=== PATIENT | male | born 1970 | race Hispanic/Latino ===

== ENCOUNTER 2017-04-13 01:47 | Emergency (ER) | payer OTHER ==
[2017-04-13 02:02] VITALS: TEMP 98.5
[2017-04-13] MEDS ORDERED: Lidocaine 1% Inj (20ml) IJ STA (03:16)
[2017-04-13] MEDS ORDERED: Lidocaine 1% Inj (20ml) ONE (03:29)
--- NOTE | 2017-04-13 04:10 | ED PDOC ---
HPI: Wound Care - HPI Time Seen by Provider: 04/13/17 04:07 Chief Complaint (Nursing): Abnormal Skin Integrity Chief Complaint (Provider): sutures History Per: Patient Exam Limitations: no limitations Additional Complaint(s): 46yo with laceration left 3rd DIP via a knife while cutting food. denies weakness to finger, dec ROM and admits to active bleeding. Past Medical History Reviewed: Historical Data, Nursing Documentation, Vital Signs Vital Signs: Last Vital Signs Temp 98.5 F 04/13/17 01:59 Pulse 105 H 04/13/17 01:59 Resp 16 04/13/17 01:59 BP 107/73 04/13/17 01:59 Pulse Ox 96 04/13/17 01:59 - Family History Family History: States: No Known Family Hx - Home Medications Home Medications: Ambulatory Orders Medication Instructions Recorded Cephalexin [cephalexin] 500 mg PO BID #20 cap 04/13/17 - Allergies Allergies/Adverse Reactions: Allergies Allergy/AdvReac Type Severity Reaction Status Date / Time No Known Allergies Allergy Verified 04/13/17 01:58 Review of Systems ROS Statement: Except As Marked, All Systems Reviewed And Found Negative Musculoskeletal: Positive for: Hand Pain Physical Exam - Reviewed Nursing Documentation Reviewed: Yes Vital Signs Reviewed: Yes - Physical Exam Appears: Positive for: Well, Non-toxic, No Acute Distress Skin: Positive for: Normal Color, Warm, DRY Cardiovascular/Chest: Positive for: Regular Rate, Rhythm Respiratory: Positive for: CNT, Normal Breath Sounds Extremity: Positive for: Other (laceration: left hand 3rd digit DIP with lunar shape laceration. .5cm) Neurologic/Psych: Positive for: Alert, Oriented - ECG O2 Sat by Pulse Oximetry: 96 - Progress ED Course And Treament: laceration repair and tetanus Procedure: Wound Repair - Time Performed Time Performed: 04:11 - Time Out Time Out: Side verified, Site verified, Patient ID confirmed, Sterile procedures obs. - Consent Obtained Consent obtained: Verbal - Performed by Performed by: Mid-level Provider - Indications Indication(s):: Laceration - Location Finger:: Left, Middle Shape:: Curvilinear Dimensions Length cm: .5 Depth:: Epidermis - Anesthetic Technique Anesthetic Technique: Regional block Local/Regional Anesthetic:: Lidocaine 2% - Debris Debris:: None - Irrigated Irrigated with ml of normal saline: 100 - Complexity Complexity:: Simple (one layer) - Wound repair method Sutures:: # (5), Size (5-0), Type (nylon), Technique (simple interrupted) - Patient tolerated procedure Patient Tolerated Procedure:: Well Disposition - Clinical Impression Clinical Impression: Laceration - Patient ED Disposition Is Patient to be Admitted: No Counseled Patient/Family Regarding: Diagnosis, Need For Followup, Rx Given - Disposition Referrals: Octavio Matute MD [Staff Provider] - Disposition: Routine/Home Disposition Time: 04:13 Condition: STABLE Additional Instructions: follow these instructions: 1. keep wound dry 2. do not apply too much pressure to area 3. take your antibiotics 5. return in 5-6 days for removal Prescriptions: Cephalexin [cephalexin] 500 mg PO BID #20 cap Instructions: Care For Your Stitches (ED), Laceration (ED), Finger Laceration ( ED)
[2017-04-13 04:27] VITALS: BP 121/79; PULSE 86; RESP 17; O2SAT 99
== END 2017-04-13 04:25 | disposition home or self-care (01) ==
LOC: H.ER 01:47
DX: S61.213A Laceration without foreign body of left middle finger without damage to nail, initial encounter (principal); W26.0XXA Contact with knife, initial encounter; Y93.G1 Activity, food preparation and clean up; Z23 Encounter for immunization

== ENCOUNTER 2018-08-27 09:30 | Inpatient (IN) | payer OTHER ==
[2018-08-27 09:33] VITALS: BMI 22.9
[2018-08-27] MEDS ORDERED: Sodium Chloride 0.9% 1,000 ML IV STA (10:01)
--- NOTE | 2018-08-27 10:12 | ED PDOC ---
HPI: Abdomen Time Seen by Provider: 08/27/18 09:48 Chief Complaint (Nursing): Abdominal Pain Chief Complaint (Provider): Abdominal pain History Per: Patient History/Exam Limitations: no limitations Onset/Duration Of Symptoms: Hrs Outside of [place] travel?: No Current Symptoms Are (Timing): Still Present Location Of Pain/Discomfort: RLQ Quality Of Discomfort: "Pain" Associated Symptoms: denies: Fever, Chills, Nausea, Vomiting, Diarrhea, Urinary Symptoms Additional History Per: Patient Additional Complaint(s): 47yo male, otherwise well, comes to ER reporting abdominal pain since this morning. Patient states the pain is right lower abdomen, and denies any associated fever, chills, chest pain, shortness of breath, vomiting. He has not taken any medications for his pain. No additional complaints. PMD: None provided Past Medical History Reviewed: Historical Data, Nursing Documentation, Vital Signs Vital Signs: Last Vital Signs Temp 97.6 F 08/27/18 09:33 Pulse 76 08/27/18 09:33 Resp 17 08/27/18 09:33 BP 116/79 08/27/18 09:33 Pulse Ox 100 08/27/18 09:33 - Medical History PMH: No Chronic Diseases - Surgical History Surgical History: No Surg Hx - Family History Family History: States: No Known Family Hx - Home Medications Home Medications: Ambulatory Orders Medication Instructions Recorded No Known Home Med 08/27/18 - Allergies Allergies/Adverse Reactions: Allergies Allergy/AdvReac Type Severity Reaction Status Date / Time No Known Allergies Allergy Verified 04/13/17 01:58 Review of Systems ROS Statement: Except As Marked, All Systems Reviewed And Found Negative Constitutional: Negative for: Fever, Chills Cardiovascular: Negative for: Chest Pain Respiratory: Negative for: Shortness of Breath Gastrointestinal: Positive for: Abdominal Pain. Negative for: Nausea, Vomiting Genitourinary Male: Negative for: Dysuria, Frequency, Hematuria Physical Exam - Reviewed Nursing Documentation Reviewed: Yes Vital Signs Reviewed: Yes - Physical Exam Appears: Positive for: Non-toxic, Uncomfortable Head Exam: Positive for: ATRAUMATIC, NORMAL INSPECTION, NORMOCEPHALIC Skin: Positive for: Normal Color Eye Exam: Positive for: Normal appearance Neck: Positive for: Supple Cardiovascular/Chest: Positive for: Regular Rate, Rhythm Respiratory: Positive for: Normal Breath Sounds. Negative for: Respiratory Distress Gastrointestinal/Abdominal: Positive for: Soft, Tenderness (right lower quadrant). Negative for: Mass, Guarding, Rebound Back: Positive for: Normal Inspection Extremity: Positive for: Normal ROM Neurological/Psych: Positive for: Awake, Alert, Oriented (x 3) - Laboratory Results Result Diagrams: 08/28/18 06:00 08/27/18 10:09 - ECG O2 Sat by Pulse Oximetry: 100 (RA) Pulse Ox Interpretation: Normal Medical Decision Making Medical Decision Makinyo with right lower quadrant pain, r/o appendicitis Plan -- Labs -- CT Abdomen/Pelvis -- Urinalysis -- IV Fluids -- Morphien 2mg IV 1245 CT Abdomen/Pelvis FINDINGS: LOWER THORAX: Unremarkable. LIVER: Diffuse hepatic steatosis. No gross lesion or ductal dilatation. GALLBLADDER AND BILE DUCTS: Unremarkable. PANCREAS: Unremarkable. No gross lesion or ductal dilatation. SPLEEN: Unremarkable. ADRENALS: Unremarkable. No mass. KIDNEYS AND URETERS: Unremarkable. No hydronephrosis. No solid mass. VASCULATURE: Unremarkable. No aortic aneurysm. No aortic atherosclerotic calcification or mural plaque present. BOWEL: Irregular thickening of the distal antrum and pylorus. No obstruction. APPENDIX: Normal appendix. PERITONEUM: Large heterogeneously enhancing right upper quadrant mass measuring 4.4 x 9.4 x 10.6 cm. The mass may be contiguous with the inferior portion of the gastric antrum as there is no clear fat plane between seen specifically on series 3, images 65-68. The inferior aspect of the mass is less distinct and is surrounded by hemorrhagic fluid which extends into the right pericolic gutter and into the pelvis. There was clear separation of the mass from adjacent colon, small bowel and anterior abdominal wall musculature. No free air. LYMPH NODES: Unremarkable. No enlarged lymph nodes. BLADDER: Unremarkable. REPRODUCTIVE: Unremarkable. BONES: No acute fracture. OTHER FINDINGS: None. IMPRESSION: Large heterogeneously enhancing right upper quadrant mass measuring 4.4 x 9.4 x 10.6 cm. The mass may be contiguous with the inferior portion of the gastric antrum as there is no clear interposed fat plane seen specifically on series 3, images 65-68. The inferior aspect of the mass is less distinct and is surrounded by hemorrhagic fluid which extends into the right pericolic gutter and into the pelvis. There is clear separation of the mass from adjacent colon, small bowel and anterior abdominal wall musculature. Alternatively, the mass may originate in the omentum. There is also irregular thickening of the distal antrum and pylorus. Findings conveyed to Dr. Gonzalez by Dr. Ruvalcaba at 12:45 p.m. on 08/27/2018. 1333 CT and labs discussed with surgical garment assembly supervisor working under Dr. Armando, who is agreeable with plan for admission residential roofer helper will evaluate patient at bedside. Dr. Mendez aware of patient. [address] Cowart, who accepts patient for admission Informed patient of plan for admission and is agreeable Scribe Attestation: Documented by Sonya Mosher acting as a scribe for Kimberly Gonzalez MD. Provider Attestation: All medical record entries made by the Scribe were at my direction and personally dictated by me. I have reviewed the chart and agree that the record accurately reflects my personal performance of the history, physical exam, medical decision making, and the department course for this patient. I have also personally directed, reviewed, and agree with the discharge instructions and disposition. Disposition - Clinical Impression Clinical Impression: Abdominal pain - Patient ED Disposition Is Patient to be Admitted: Yes - Disposition Disposition Time: 13:36 Condition: STABLE - Pt Status Changed To: Hospital Disposition Of: Inpatient - Admit Certification Admit to Inpatient:: After my assessment, the patient will require hospitalization for at least two midnights. This is because of the severity of symptoms shown, intensity of services needed, and/or the medical risk in this patient being treated as an outpatient. - POA Present On Arrival: None
[2018-08-27 10:14] LABS: BASO % 0.6 % (0.0-2.0); EOS % 0.8 % (0.0-4.0); HEMOGLOBIN 13.5 g/dL (12.0-18.0); LYMPH # 2.4 K/uL (1.0-4.3); LYMPH % 54.8 % (20.0-40.0); MEAN CELL VOLUME 100.3 fl (80.0-94.0); MEAN CORPUSCULAR HGB CONC 32.9 g/dL (33.0-37.0); MEAN PLATELET VOLUME 9.2 fl (7.2-11.7); MONO # 0.6 K/uL (0.0-0.8); NEUT # 1.2 K/uL (1.8-7.0); NEUT % 28.8 % (50.0-75.0); NRBC % 0.1 % (0.0-0.0); RBC 4.1 Mil/uL (4.40-5.90); WHITE BLOOD COUNT 4.3 K/uL (4.8-10.8)
[2018-08-27 10:24] LABS: ALB/GLOB RATIO 1.5 (1.0-2.1); ALBUMIN 4.6 g/dL (3.5-5.0); ALT/SGPT 363 U/L (21-72); AST/SGOT 261 U/L (17-59); BLOOD UREA NITROGEN 11 mg/dl (9-20); CALCIUM 8.8 mg/dL (8.4-10.2); GFR NON-AFRICAN AMERICAN > 60
[2018-08-27 10:26] LABS: INR 0.9; PROTHROMBIN TIME 10.6 Seconds (9.8-13.1)
[2018-08-27 10:27] LABS: PARTIAL THROMBOPLASTIN TIME 23.8 Seconds (25.6-37.1)
[2018-08-27] MEDS ORDERED: Sodium Chloride 0.9% 100 ML IV ONE (12:03)
[2018-08-27] MEDS ORDERED: Iohexol 300 100 ML IJ ONE (12:03)
[2018-08-27 12:12] LABS: SQUAMOUS EPITHIAL < 1 /hpf (0-5); URINE BILIRUBIN NEGATIVE (NEGATIVE); URINE BLOOD SMALL (NEGATIVE); URINE CLARITY CLEAR (Clear); URINE COLOR STRAW (YELLOW); URINE GLUCOSE (UA) NEG (NEGATIVE); URINE LEUKOCYTE ESTERASE NEG Leu/uL (Negative); URINE PROTEIN NEGATIVE (NEGATIVE); URINE UROBILINOGEN 0.2-1.0 mg/dL (0.2-1.0)
--- NOTE | 2018-08-27 12:56 | CT ---
Date of service: 08/27/2018 PROCEDURE: CT Abdomen and Pelvis with contrast HISTORY: RLQ pain COMPARISON: None. TECHNIQUE: Contrast dose: 95 mL Omnipaque 300 Radiation dose: Total exam DLP = 433.84 mGy-cm. This CT exam was performed using one or more of the following dose reduction techniques: Automated exposure control, adjustment of the mA and/or kV according to patient size, and/or use of iterative reconstruction technique. FINDINGS: LOWER THORAX: Unremarkable. LIVER: Diffuse hepatic steatosis. No gross lesion or ductal dilatation. GALLBLADDER AND BILE DUCTS: Unremarkable. PANCREAS: Unremarkable. No gross lesion or ductal dilatation. SPLEEN: Unremarkable. ADRENALS: Unremarkable. No mass. KIDNEYS AND URETERS: Unremarkable. No hydronephrosis. No solid mass. VASCULATURE: Unremarkable. No aortic aneurysm. No aortic atherosclerotic calcification or mural plaque present. BOWEL: Irregular thickening of the distal antrum and pylorus. No obstruction. APPENDIX: Normal appendix. PERITONEUM: Large heterogeneously enhancing right upper quadrant mass measuring 4.4 x 9.4 x 10.6 cm. The mass may be contiguous with the inferior portion of the gastric antrum as there is no clear fat plane between seen specifically on series 3, images 65-68. The inferior aspect of the mass is less distinct and is surrounded by hemorrhagic fluid which extends into the right pericolic gutter and into the pelvis. There was clear separation of the mass from adjacent colon, small bowel and anterior abdominal wall musculature. No free air. LYMPH NODES: Unremarkable. No enlarged lymph nodes. BLADDER: Unremarkable. REPRODUCTIVE: Unremarkable. BONES: No acute fracture. OTHER FINDINGS: None. IMPRESSION: Large heterogeneously enhancing right upper quadrant mass measuring 4.4 x 9.4 x 10.6 cm. The mass may be contiguous with the inferior portion of the gastric antrum as there is no clear interposed fat plane seen specifically on series 3, images 65-68. The inferior aspect of the mass is less distinct and is surrounded by hemorrhagic fluid which extends into the right pericolic gutter and into the pelvis. There is clear separation of the mass from adjacent colon, small bowel and anterior abdominal wall musculature. Alternatively, the mass may originate in the omentum. There is also irregular thickening of the distal antrum and pylorus. Findings conveyed to Dr. Gonzalez by Dr. Ruvalcaba at 12:45 p.m. on 08/27/2018.
--- NOTE | 2018-08-27 18:02 | CP.PCM.CON ---
History of Present Illness - History of Present Illness History of Present Illness: Surgery Consult Note- Dr. Armando Reason for consult: abdominal mass 47M presents to [facility] ED with Right flank to back pain that started 1 day ago. Pain was severely debilitating. Never has pain like this in the past. While in the ER patient received analgesia and pain currently resolved. During work up, CT scan revealed intra-abdominal mass measuring approx 10x7cm. Surgery was subsequently consulted. No obstructive symptoms noted During encounter patient Denies: nausea, vomiting, fevers, chills, changes in bowel, bladder habits, BRBPR, unexplained weight gain, or weight loss, recent foreign travel. PMH: Depression (no longer taking medications) PSH: denies ALL: NKDA SocialHx: etoh use- 2 drinks daily, denies tobacco, recreational drug use FH: mother of Breast Ca, Father "liver Ca" hx of HepC Review of Systems - Review of Systems All systems: reviewed and no additional remarkable complaints except - Constitutional Constitutional: As Per HPI Past Patient History - Past Social History Smoking Status: Never Smoked - CARDIAC Hx Cardiac Disorders: No - PSYCHIATRIC Hx Substance Use: No - SURGICAL HISTORY Hx Surgeries: No Meds Allergies/Adverse Reactions: Allergies Allergy/AdvReac Type Severity Reaction Status Date / Time No Known Allergies Allergy Verified 04/13/17 01:58 Physical Exam - Constitutional Appears: Non-toxic, No Acute Distress - Head Exam Head Exam: ATRAUMATIC - Eye Exam Eye Exam: EOMI. absent: Scleral icterus - ENT Exam ENT Exam: Mucous Membranes Moist - Respiratory Exam Respiratory Exam: NORMAL BREATHING PATTERN. absent: Accessory Muscle Use, Respiratory Distress - Cardiovascular Exam Cardiovascular Exam: REGULAR RHYTHM. absent: Bradycardia, Tachycardia - GI/Abdominal Exam GI & Abdominal Exam: Normal Bowel Sounds, Soft. absent: Distended, Firm, Gu arding, Hernia, Pulsatile Mass, Rebound, Rigid, Tenderness Additional comments: fullness palpated RUQ. Denies pain to palpation - Extremities Exam Extremities exam: Positive for: normal capillary refill. Negative for: calf tenderness, tenderness - Back Exam Back exam: absent: CVA tenderness (L), CVA tenderness (R) - Neurological Exam Neurological exam: Alert, Oriented x3 - Psychiatric Exam Psychiatric exam: Normal Affect - Skin Skin Exam: Intact, Warm Results - Vital Signs Recent Vital Signs: Last Vital Signs Temp 98.2 F 08/27/18 17:11 Pulse 103 H 08/27/18 17:11 Resp 18 08/27/18 17:11 BP 123/76 08/27/18 17:11 Pulse Ox 98 08/27/18 17:11 - Labs Result Diagrams: 08/27/18 10:07 08/27/18 10:09 Labs: Laboratory Results - last 24 hr 08/27/18 08/27/18 08/27/18 10:07 10:07 10:09 WBC 4.3 L RBC 4.10 L Hgb 13.5 Hct 41.1 MCV 100.3 H MCH 33.0 H MCHC 32.9 L RDW 14.0 Plt Count 161 MPV 9.2 Neut % (Auto) 28.8 L Lymph % (Auto) 54.8 H [place] % (Auto) 15.0 H Eos % (Auto) 0.8 Baso % (Auto) 0.6 Neut # (Auto) 1.2 L Lymph # (Auto) 2.4 [place] # (Auto) 0.6 Eos # (Auto) 0.0 Baso # (Auto) 0.0 PT 10.6 INR 0.9 APTT 23.8 L Sodium 144 Potassium 4.1 Chloride 108 H Carbon Dioxide 22 Anion Gap 18 BUN 11 Creatinine 0.8 Est GFR ( Amer) > 60 Est GFR (Non-Af Amer) > 60 Random Glucose 107 Calcium 8.8 Total Bilirubin 0.4 AST 261 H ALT 363 H Alkaline Phosphatase 64 Total Protein 7.7 Albumin 4.6 Globulin 3.1 Albumin/Globulin Ratio 1.5 Urine Color Urine Clarity Urine pH Ur Specific [place] Urine Protein Urine Glucose (UA) Urine Ketones Urine Blood Urine Nitrate Urine Bilirubin Urine Urobilinogen Ur Leukocyte Esterase Urine RBC (Auto) Urine Microscopic WBC Ur Squamous Epith Cells 08/27/18 11:53 WBC RBC Hgb Hct MCV MCH MCHC RDW Plt Count MPV Neut % (Auto) Lymph % (Auto) [place] % (Auto) Eos % (Auto) Baso % (Auto) Neut # (Auto) Lymph # (Auto) [place] # (Auto) Eos # (Auto) Baso # (Auto) PT INR APTT Sodium Potassium Chloride Carbon Dioxide Anion Gap BUN Creatinine Est GFR ( Amer) Est GFR (Non-Af Amer) Random Glucose Calcium Total Bilirubin AST ALT Alkaline Phosphatase Total Protein Albumin Globulin Albumin/Globulin Ratio Urine Color Straw Urine Clarity Clear Urine pH 6.0 Ur Specific [place] 1.013 Urine Protein Negative Urine Glucose (UA) Neg Urine Ketones Trace Urine Blood Small Urine Nitrate Negative Urine Bilirubin Negative Urine Urobilinogen 0.2-1.0 Ur Leukocyte Esterase Neg Urine RBC (Auto) 1 Urine Microscopic WBC < 1 Ur Squamous Epith Cells < 1 Assessment & Plan - Assessment and Plan (Free Text) Assessment: 47M w/ Intra-abdominal Mass Plan: - repeat CBC in AM - Tumor Markers - Diet as tolerated - Recommend GI Consult - Recommend Biopsy possible IR - patient shows no obstructive symptoms. If Patient desires to go home, cleared for follow up as an outpatient with close further work up required - discussed w/ Dr. Armando Surgical attending and Dr. Cowart [facility] PGY2
--- NOTE | 2018-08-27 23:57 | CP.PCM.CON ---
History of Present Illness - History of Present Illness History of Present Illness: 47 yo male admitted with right sided abdominal pain. Started suddenly this morning. Was well previously. Episode in the past of elevated LFTs which he was told would respond to diet. No nausea, vomiting or diarrhea. No fever/chills. Wagner s 2 drinks daily Review of Systems - Constitutional Constitutional: absent: Chills - EENT Eyes: absent: Blurred Vision Ears: absent: Ear Discharge Nose/Mouth/Throat: absent: Epistaxis - Cardiovascular Cardiovascular: absent: Chest Pain - Respiratory Respiratory: absent: Cough - Gastrointestinal Gastrointestinal: As Per HPI - Genitourinary Genitourinary: absent: Change in Urinary Stream - Musculoskeletal Musculoskeletal: absent: Arthralgias Past Patient History - Past Social History Smoking Status: Never Smoked - CARDIAC Hx Cardiac Disorders: No - PULMONARY Hx Respiratory Disorders: No - NEUROLOGICAL Hx Neurological Disorder: No - HEENT Hx HEENT Problems: No - RENAL Hx Chronic Kidney Disease: No - HEMATOLOGICAL/ONCOLOGICAL Hx Blood Disorders: No - INTEGUMENTARY Hx Dermatological Problems: No - MUSCULOSKELETAL/RHEUMATOLOGICAL Hx Musculoskeletal Disorders: No Hx Falls: No - GASTROINTESTINAL Hx Gastrointestinal Disorders: No - GENITOURINARY/GYNECOLOGICAL Hx Genitourinary Disorders: No - PSYCHIATRIC Hx Substance Use: No - SURGICAL HISTORY Hx Surgeries: No - ANESTHESIA Has any member of the family had a problem w/ anesthesia?: No Meds Allergies/Adverse Reactions: Allergies Allergy/AdvReac Type Severity Reaction Status Date / Time No Known Allergies Allergy Verified 04/13/17 01:58 Physical Exam - Constitutional Appears: No Acute Distress - Head Exam Head Exam: ATRAUMATIC - Eye Exam Eye Exam: Normal appearance - ENT Exam ENT Exam: Normal Exam - Respiratory Exam Respiratory Exam: Clear to Auscultation Bilateral - Cardiovascular Exam Cardiovascular Exam: REGULAR RHYTHM, +S1, +S2 - GI/Abdominal Exam GI & Abdominal Exam: Normal Bowel Sounds, Soft. absent: Tenderness - Extremities Exam Extremities exam: Positive for: normal inspection Results - Vital Signs Recent Vital Signs: Last Vital Signs Temp 98.2 F 08/27/18 17:11 Pulse 80 08/27/18 18:21 Resp 18 08/27/18 18:21 BP 123/76 08/27/18 17:11 Pulse Ox 98 08/27/18 17:11 - Labs Result Diagrams: 08/27/18 10:07 08/27/18 10:09 Labs: Laboratory Results - last 24 hr 08/27/18 08/27/18 08/27/18 10:07 10:07 10:09 WBC 4.3 L RBC 4.10 L Hgb 13.5 Hct 41.1 MCV 100.3 H MCH 33.0 H MCHC 32.9 L RDW 14.0 Plt Count 161 MPV 9.2 Neut % (Auto) 28.8 L Lymph % (Auto) 54.8 H [place] % (Auto) 15.0 H Eos % (Auto) 0.8 Baso % (Auto) 0.6 Neut # (Auto) 1.2 L Lymph # (Auto) 2.4 [place] # (Auto) 0.6 Eos # (Auto) 0.0 Baso # (Auto) 0.0 PT 10.6 INR 0.9 APTT 23.8 L Sodium 144 Potassium 4.1 Chloride 108 H Carbon Dioxide 22 Anion Gap 18 BUN 11 Creatinine 0.8 Est GFR ( Amer) > 60 Est GFR (Non-Af Amer) > 60 Random Glucose 107 Calcium 8.8 Total Bilirubin 0.4 AST 261 H ALT 363 H Alkaline Phosphatase 64 Total Protein 7.7 Albumin 4.6 Globulin 3.1 Albumin/Globulin Ratio 1.5 Urine Color Urine Clarity Urine pH Ur Specific [place] Urine Protein Urine Glucose (UA) Urine Ketones Urine Blood Urine Nitrate Urine Bilirubin Urine Urobilinogen Ur Leukocyte Esterase Urine RBC (Auto) Urine Microscopic WBC Ur Squamous Epith Cells 08/27/18 11:53 WBC RBC Hgb Hct MCV MCH MCHC RDW Plt Count MPV Neut % (Auto) Lymph % (Auto) [place] % (Auto) Eos % (Auto) Baso % (Auto) Neut # (Auto) Lymph # (Auto) [place] # (Auto) Eos # (Auto) Baso # (Auto) PT INR APTT Sodium Potassium Chloride Carbon Dioxide Anion Gap BUN Creatinine Est GFR ( Amer) Est GFR (Non-Af Amer) Random Glucose Calcium Total Bilirubin AST ALT Alkaline Phosphatase Total Protein Albumin Globulin Albumin/Globulin Ratio Urine Color Straw Urine Clarity Clear Urine pH 6.0 Ur Specific [place] 1.013 Urine Protein Negative Urine Glucose (UA) Neg Urine Ketones Trace Urine Blood Small Urine Nitrate Negative Urine Bilirubin Negative Urine Urobilinogen 0.2-1.0 Ur Leukocyte Esterase Neg Urine RBC (Auto) 1 Urine Microscopic WBC < 1 Ur Squamous Epith Cells < 1 - Imaging and Cardiology CT scan - abdomen Status: Image reviewed by me, Report reviewed by me Assessment & Plan (1) Abdominal pain Assessment and Plan: Larrge 10 cm mass RUQ possibly contiguous to inferior portion of gastric antrum. Will perform upper endoscopy Wednesday. If negative biopsy by IR. Status: Acute
[2018-08-28 07:03] LABS: BASO % 0.4 % (0.0-2.0); EOS % 0.5 % (0.0-4.0); HEMOGLOBIN 11.3 g/dL (12.0-18.0); LYMPH # 1.2 K/uL (1.0-4.3); LYMPH % 21.5 % (20.0-40.0); MEAN CELL VOLUME 98.4 fl (80.0-94.0); MEAN CORPUSCULAR HEMOGLOBIN 33.6 pg (27.0-31.0); MEAN CORPUSCULAR HGB CONC 34.1 g/dL (33.0-37.0); MEAN PLATELET VOLUME 9.5 fl (7.2-11.7); MONO % 18.4 % (0.0-10.0); NEUT # 3.4 K/uL (1.8-7.0); NEUT % 59.2 % (50.0-75.0); RBC 3.36 Mil/uL (4.40-5.90); RED CELL DISTRIBUTION WIDTH 13.4 % (11.5-14.5); WHITE BLOOD COUNT 5.7 K/uL (4.8-10.8)
[2018-08-28 07:54] VITALS: RESP 20
--- NOTE | 2018-08-28 08:28 | CP.PCM.PN ---
Subjective - Date & Time of Evaluation Date of Evaluation: 08/28/18 Time of Evaluation: 08:28 - Subjective Subjective: Surgery Progress Note- Dr. Armando No acute events overnight. Tolerating Regular diet. + OOB and ambulating. Denies fevers, chills, chest pain, shortness of breath, acute mental status changes, dizziness. Objective - Vital Signs/Intake and Output Vital Signs (last 24 hours): Temp Pulse Resp BP Pulse Ox 98.1 F 91 H 20 137/88 98 08/28/18 07:53 08/28/18 07:53 08/28/18 07:53 08/28/18 07:53 08/28/18 07:53 - Medications Medications: Current Medications Lactated Ringer's (Lactated Ringer's) 1,000 mls @ 60 mls/hr IV .[id number] ERIC - Labs Labs: 08/28/18 06:00 08/27/18 10:09 PT 10.6 Seconds (9.8-13.1) 08/27/18 10:07 INR 0.9 08/27/18 10:07 APTT 23.8 Seconds (25.6-37.1) L 08/27/18 10:07 - Constitutional Appears: Non-toxic, No Acute Distress - Head Exam Head Exam: ATRAUMATIC - Eye Exam Eye Exam: EOMI. absent: Scleral icterus - ENT Exam ENT Exam: Mucous Membranes Moist - Respiratory Exam Respiratory Exam: NORMAL BREATHING PATTERN. absent: Accessory Muscle Use, R espiratory Distress - Cardiovascular Exam Cardiovascular Exam: REGULAR RHYTHM. absent: Bradycardia, Tachycardia - GI/Abdominal Exam GI & Abdominal Exam: Soft. absent: Distended, Firm, Guarding, Rigid, Tenderness Additional comments: fullness in RUQ., no pain - Neurological Exam Neurological Exam: Alert, Awake, Oriented x3 - Skin Skin Exam: Intact, Warm Assessment and Plan - Assessment and Plan (Free Text) Assessment: 47M w/ intra-abdominal mass, gastric vs mesenteric Plan: - f/u Hgb - c/s GI; all recs appreciated - tumor markers - recommend biopsy - d[facility]
[2018-08-28 16:22] VITALS: BP 124/83; PULSE 90; TEMP 98.3; O2SAT 99
[2018-08-28 18:29] LABS: BASO % 0.6 % (0.0-2.0); EOS % 0.8 % (0.0-4.0); HEMOGLOBIN 11.4 g/dL (12.0-18.0); LYMPH # 1.5 K/uL (1.0-4.3); LYMPH % 30.6 % (20.0-40.0); MEAN CELL VOLUME 98.6 fl (80.0-94.0); MEAN CORPUSCULAR HEMOGLOBIN 32.8 pg (27.0-31.0); MEAN CORPUSCULAR HGB CONC 33.2 g/dL (33.0-37.0); MEAN PLATELET VOLUME 9.2 fl (7.2-11.7); MONO % 20.2 % (0.0-10.0); NEUT # 2.4 K/uL (1.8-7.0); NEUT % 47.8 % (50.0-75.0); NRBC % 0.1 % (0.0-0.0); PLATELET COUNT 144 K/uL (130-400); RBC 3.47 Mil/uL (4.40-5.90); RED CELL DISTRIBUTION WIDTH 13.6 % (11.5-14.5)
[2018-08-28 19:17] LABS: HYPOCHROMIC SLIGHT; PLATELET ESTIMATE NORMAL (NORMAL)
[2018-08-28 19:18] LABS: BANDS 3 % (0-2); BASOPHIL 1 % (0-2); EOSINOPHIL 1 % (0-7); LYMPHOCYTE 30 % (20-50); MONOCYTE 21 % (0-10); NEUTROPHIL 44 % (42-75); TOTAL CELLS COUNTED 100
[2018-08-28] MEDS ORDERED: Lactated Ringer's 1,000 ML IV SCH (22:00)
--- NOTE | 2018-08-29 05:30 | CP.PCM.HP ---
Past Patient History - Past Social History Smoking Status: Never Smoked - CARDIAC Hx Cardiac Disorders: No - PULMONARY Hx Respiratory Disorders: No - NEUROLOGICAL Hx Neurological Disorder: No - HEENT Hx HEENT Problems: No - RENAL Hx Chronic Kidney Disease: No - HEMATOLOGICAL/ONCOLOGICAL Hx Blood Disorders: No - INTEGUMENTARY Hx Dermatological Problems: No - MUSCULOSKELETAL/RHEUMATOLOGICAL Hx Musculoskeletal Disorders: No Hx Falls: No - GASTROINTESTINAL Hx Gastrointestinal Disorders: No - GENITOURINARY/GYNECOLOGICAL Hx Genitourinary Disorders: No - PSYCHIATRIC Hx Substance Use: No - SURGICAL HISTORY Hx Surgeries: No - ANESTHESIA Has any member of the family had a problem w/ anesthesia?: No Meds Allergies/Adverse Reactions: Allergies Allergy/AdvReac Type Severity Reaction Status Date / Time No Known Allergies Allergy Verified 04/13/17 01:58 Results - Vital Signs Recent Vital Signs: Last Vital Signs Temp 98.3 F 08/28/18 16:22 Pulse 90 08/28/18 16:22 Resp 20 08/28/18 16:22 BP 124/83 08/28/18 16:22 Pulse Ox 99 08/28/18 16:22 - Labs Result Diagrams: 08/28/18 18:15 08/27/18 10:09 Labs: Laboratory Results - last 24 hr 08/28/18 08/28/18 08/28/18 06:00 06:00 06:00 WBC 5.7 RBC 3.36 L Hgb 11.3 L D Hct 33.1 L MCV 98.4 H MCH 33.6 H MCHC 34.1 RDW 13.4 Plt Count 143 MPV 9.5 Neut % (Auto) 59.2 Lymph % (Auto) 21.5 [place] % (Auto) 18.4 H Eos % (Auto) 0.5 Baso % (Auto) 0.4 Neut # (Auto) 3.4 Lymph # (Auto) 1.2 [place] # (Auto) 1.0 H Eos # (Auto) 0.0 Baso # (Auto) 0.0 Neutrophils % (Manual) Band Neutrophils % Lymphocytes % (Manual) Monocytes % (Manual) Eosinophils % (Manual) Basophils % (Manual) Platelet Estimate Hypochromasia (manual) Alpha Fetoprotein 4.7 Carcinoembryonic Ag 1.0 08/28/18 18:15 WBC 5.0 RBC 3.47 L Hgb 11.4 L Hct 34.2 L MCV 98.6 H MCH 32.8 H MCHC 33.2 RDW 13.6 Plt Count 144 MPV 9.2 Neut % (Auto) 47.8 L Lymph % (Auto) 30.6 [place] % (Auto) 20.2 H Eos % (Auto) 0.8 Baso % (Auto) 0.6 Neut # (Auto) 2.4 Lymph # (Auto) 1.5 [place] # (Auto) 1.0 H Eos # (Auto) 0.0 Baso # (Auto) 0.0 Neutrophils % (Manual) 44 Band Neutrophils % 3 H Lymphocytes % (Manual) 30 Monocytes % (Manual) 21 H Eosinophils % (Manual) 1 Basophils % (Manual) 1 Platelet Estimate Normal Hypochromasia (manual) Slight Alpha Fetoprotein Carcinoembryonic Ag
--- NOTE | 2018-08-29 05:31 | CP.PCM.DIS ---
Provider - Provider Date of Admission: 08/27/18 13:33 Attending physician: Irena Cowart MD Consults: 08/27/18 13:36 Gastroenterology Consult Stat Comment: Consulting Provider: Michael Mendez Consulting Physician: Michael Mendez Reason for Consult: Abdominal mass General Surgery Consult Stat Comment: Consulting Provider: Annemarie Armando Consulting Physician: Annemarie Armando Reason for Consult: Abdominal mass Time Spent in preparation of Discharge (in minutes): 25 Hospital Course - Lab Results Lab Results: Most Recent Lab Values WBC 5.0 K/uL (4.8-10.8) 08/28/18 18:15 RBC 3.47 Mil/uL (4.40-5.90) L 08/28/18 18:15 Hgb 11.4 g/dL (12.0-18.0) L 08/28/18 18:15 Hct 34.2 % (35.0-51.0) L 08/28/18 18:15 MCV 98.6 fl (80.0-94.0) H 08/28/18 18:15 MCH 32.8 pg (27.0-31.0) H 08/28/18 18:15 MCHC 33.2 g/dL (33.0-37.0) 08/28/18 18:15 RDW 13.6 % (11.5-14.5) 08/28/18 18:15 Plt Count 144 K/uL (130-400) 08/28/18 18:15 MPV 9.2 fl (7.2-11.7) 08/28/18 18:15 Neut % (Auto) 47.8 % (50.0-75.0) L 08/28/18 18:15 Lymph % (Auto) 30.6 % (20.0-40.0) 08/28/18 18:15 [place] % (Auto) 20.2 % (0.0-10.0) H 08/28/18 18:15 Eos % (Auto) 0.8 % (0.0-4.0) 08/28/18 18:15 Baso % (Auto) 0.6 % (0.0-2.0) 08/28/18 18:15 Neut # (Auto) 2.4 K/uL (1.8-7.0) 08/28/18 18:15 Lymph # (Auto) 1.5 K/uL (1.0-4.3) 08/28/18 18:15 [place] # (Auto) 1.0 K/uL (0.0-0.8) H 08/28/18 18:15 Eos # (Auto) 0.0 K/uL (0.0-0.7) 08/28/18 18:15 Baso # (Auto) 0.0 K/uL (0.0-0.2) 08/28/18 18:15 Neutrophils % (Manual) 44 % (42-75) 08/28/18 18:15 Band Neutrophils % 3 % (0-2) H 08/28/18 18:15 Lymphocytes % (Manual) 30 % (20-50) 08/28/18 18:15 Monocytes % (Manual) 21 % (0-10) H 08/28/18 18:15 Eosinophils % (Manual) 1 % (0-7) 08/28/18 18:15 Basophils % (Manual) 1 % (0-2) 08/28/18 18:15 Platelet Estimate Normal (NORMAL) 08/28/18 18:15 Hypochromasia (manual) Slight 08/28/18 18:15 PT 10.6 Seconds (9.8-13.1) 08/27/18 10:07 INR 0.9 08/27/18 10:07 APTT 23.8 Seconds (25.6-37.1) L 08/27/18 10:07 Sodium 144 mmol/l (132-148) 08/27/18 10:09 Potassium 4.1 MMOL/L (3.6-5.0) 08/27/18 10:09 Chloride 108 mmol/L (98-107) H 08/27/18 10:09 Carbon Dioxide 22 mmol/L (22-30) 08/27/18 10:09 Anion Gap 18 (10-20) 08/27/18 10:09 BUN 11 mg/dl (9-20) 08/27/18 10:09 Creatinine 0.8 mg/dl (0.8-1.5) 08/27/18 10:09 Est GFR ( Amer) > 60 08/27/18 10:09 Est GFR (Non-Af Amer) > 60 08/27/18 10:09 Random Glucose 107 mg/dL (75-110) 08/27/18 10:09 Calcium 8.8 mg/dL (8.4-10.2) 08/27/18 10:09 Total Bilirubin 0.4 mg/dl (0.2-1.3) 08/27/18 10:09 AST 261 U/L (17-59) H 08/27/18 10:09 ALT 363 U/L (21-72) H 08/27/18 10:09 Alkaline Phosphatase 64 U/L (38-126) 08/27/18 10:09 Total Protein 7.7 G/DL (6.3-8.2) 08/27/18 10:09 Albumin 4.6 g/dL (3.5-5.0) 08/27/18 10:09 Globulin 3.1 gm/dL (2.2-3.9) 08/27/18 10:09 Albumin/Globulin Ratio 1.5 (1.0-2.1) 08/27/18 10:09 Alpha Fetoprotein 4.7 IU/mL (0.0-7.22) 08/28/18 06:00 Carcinoembryonic Ag 1.0 ng/mL (0-3.0) 08/28/18 06:00 Urine Color Straw (YELLOW) 08/27/18 11:53 Urine Clarity Clear (Clear) 08/27/18 11:53 Urine pH 6.0 (5.0-8.0) 08/27/18 11:53 Ur Specific [place] 1.013 (1.003-1.030) 08/27/18 11:53 Urine Protein Negative mg/dL (NEGATIVE) 08/27/18 11:53 Urine Glucose (UA) Neg mg/dL (NEGATIVE) 08/27/18 11:53 Urine Ketones Trace mg/dL (NEGATIVE) 08/27/18 11:53 Urine Blood Small (NEGATIVE) 08/27/18 11:53 Urine Nitrate Negative (NEGATIVE) 08/27/18 11:53 Urine Bilirubin Negative (NEGATIVE) 08/27/18 11:53 Urine Urobilinogen 0.2-1.0 mg/dL (0.2-1.0) 08/27/18 11:53 Ur Leukocyte Esterase Neg [place]/uL (Negative) 08/27/18 11:53 Urine RBC (Auto) 1 /hpf (0-3) 08/27/18 11:53 Urine Microscopic WBC < 1 /hpf (0-5) 08/27/18 11:53 Ur Squamous Epith Cells < 1 /hpf (0-5) 08/27/18 11:53 Discharge Exam - Head Exam Head Exam: ATRAUMATIC, NORMAL INSPECTION, NORMOCEPHALIC Discharge Plan - Follow Up Plan Condition: STABLE Disposition: HOME/ ROUTINE Instructions: Acute Abdominal Pain (DC)
== END 2018-08-28 18:55 | disposition home or self-care (01) | DRG 392 ==
LOC: H.ER 09:30 → H.ERHOLD 13:33 → H.MEDSURG1 17:01
PROVIDERS: ADMIT Internal Medicine; ATTEND Internal Medicine
DX: R19.01 Right upper quadrant abdominal swelling, mass and lump (principal); Z80.0 Family history of malignant neoplasm of digestive organs; Z80.3 Family history of malignant neoplasm of breast; F32.9 Major depressive disorder, single episode, unspecified; M54.9 Dorsalgia, unspecified; R10.31 Right lower quadrant pain